=== PATIENT | male | born 1995 | race Caucasian/White ===

== ENCOUNTER → 2018-07-30 | Emergency (ER) | payer OTHER ==
[~2018-07-30] VITALS: Ht 170.2 cm; Wt 96.2 kg
== END | disposition home or self-care (01) ==
LOC: ER 19:29
DX: M94.0 Chondrocostal junction syndrome [Tietze] (principal)

== ENCOUNTER 2018-08-20 09:42 | Emergency (ER) | payer OTHER ==
[~2018-08-20] VITALS: Ht 170.2 cm; Wt 96.2 kg
== END 2018-08-20 11:44 | disposition home or self-care (01) ==
LOC: ER 09:42
DX: M25.531 Pain in right wrist (principal)

== ENCOUNTER 2018-09-13 14:39 | Emergency (ER) | payer OTHER ==
[~2018-09-13] VITALS: Ht 170.2 cm; Wt 90.7 kg
[2018-09-13] MEDS ORDERED: TOBREX5 ML OP (14:52)
[2018-09-13] MEDS ORDERED: TYLENOL EXTRA500 MG PO (15:00)
== END 2018-09-13 15:48 | disposition home or self-care (01) ==
LOC: ER 14:39
DX: H57.89 Other specified disorders of eye and adnexa (principal)

== ENCOUNTER 2019-06-20 20:39 | Emergency (ER) | payer OTHER ==
[~2019-06-20] VITALS: Ht 170.2 cm; Wt 90.7 kg
[~2019-06-20 20:39] MED LIST: TOBREX5 ML OP; TYLENOL EXTRA500 MG PO
== END 2019-06-20 21:48 | disposition home or self-care (01) ==
LOC: ER 20:39
DX: S93.492A Sprain of other ligament of left ankle, initial encounter (principal); X50.3XXA Overexertion from repetitive movements, initial encounter; Y93.01 Activity, walking, marching and hiking; Y92.89 Other specified places as the place of occurrence of the external cause; Y99.8 Other external cause status